=== PATIENT | female | born 1935 | race Caucasian/White ===

== ENCOUNTER 2018-03-07 14:13 | Emergency (ER) | payer MEDICARE, OTHER, SELFPAY ==
[2018-03-07 14:14] VITALS: BP 156/66; PULSE 57; RESP 16; TEMP 36; O2SAT 100; BMI 25.4
--- NOTE | 2018-03-07 14:22 | EKG12_ITS ---
Test Reason : REPEAT Blood Pressure : / mmHG Vent. Rate : 062 BPM Atrial Rate : 062 BPM P-R Int : 000 ms QRS Dur : 070 ms QT Int : 406 ms P-R-T Axes : 000 032 020 degrees QTc Int : 412 ms Junctional rhythm Abnormal ECG Confirmed by AUSTIN GRANADO MD ([id number]), fan mail editor GARY LIVE ([id number]) on 03/10/2018 2:31:17 PM Referred By: GENNA Confirmed By:AUSTIN GRANADO MD
--- NOTE | 2018-03-07 14:22 | RAD_ITS ---
STUDY: X-RAY CHEST REASON FOR EXAM: Female, 82 years old. Chest pain and cough. TECHNIQUE: Single AP portable view of the chest. COMPARISON: None. FINDINGS: EKG electrodes are seen. The lungs are clear and expanded. There is no demonstrated pleural abnormality. Normal size heart. Normal mediastinum and sixto. Normal visualized pulmonary arteries. There is atherosclerotic tortuosity of the aortic arch and descending thoracic aorta. There are degenerative changes of the visualized thoracic spine. There is degenerative osteoarthritis of the bilateral shoulders. Moderate sized hiatal hernia. RAD/Chest 1 View (Portable) IMPRESSION: Hiatal hernia. No acute abnormality is seen. Electronically Signed: Olaf Craig MD at 15:28 EST Tel [phone], Service support ,
--- NOTE | 2018-03-07 14:35 | ED.VISSUMM ---
- ER Visit Summary Date of Service: 03/07/18 Chief Complaint: Chest pain History of Present Illness: The patient is a 82 F past medical history of hypertension and dementia. Patient started complaining of some chest discomfort today around noon. Denies any shortness of breath. No hemoptysis. She is never had a DVT or PE. Denies any leg pain or swelling. She has recently traveled to and from driving over the last 7 weeks. Daughter is with her to help with the history due to the patient's dementia. Patient has never had any history of cardiac disease. She has not been ill recently. No nausea, vomiting or diarrhea.. She has had no recent exertional dyspnea. No fever. No hemoptysis. Physical Examination: Older female no acute distress. Vital signs are stable and afebrile. H EENT exam is unremarkable. Neck nontender no lymphadenopathy. Pupils are round reactive light. No facial droop. Lungs clear to auscultation bilaterally. Heart regular rate and rhythm no murmur rate about 60. Chest wall does have reproducible tenderness along the sternum and rib cages. There is no ecchymosis or bruising. There is no subcu air. There is no redness nor warmth. Abdomen is soft and nontender. Normal bowel sounds no peritoneal signs. Patient is moving all 4 extremities. Neurovascular intact. Calves are nontender without edema or cords. 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 Dorsi and plantar flexion intact. Back nontender. Neurologically she is awake and alert. Answers questions. Her history is limited due to her dementia and the accuracy of her statements may be limited also. She has no focal motor deficits. Test Results: Chest x-ray portable one view shows chronic changes no acute process normal cardiac silhouette mediastinum. EKG sinus rhythm rate of 58 with no acute signs of [place] nor CBC shows a white count of 4. Hemoglobin 11. Electrolytes are unremarkable normal BUN/creatinine and gap. Troponin normal. D-dimer is elevated at 1.66. For that reason a CTA of the chest will be obtained. CTA read by the radiologist showed no acute abnormality. I did review the film also. Emergency Department Course and Treatment: Patient will undergo cardiac workup. She also will have a d-dimer done due to her recent travel. However she does have reproducible chest wall pain. Repeat exam patient is doing well. Discussed all test results with her and her daughter and her current with her being discharged home. Treatment Plan: Tylenol for pain. Limited Motrin. Follow-up with your doctor. Disposition: Discharge Impression: Acute chest pain Acute chest wall pain This note was generated with [employer] dictation software. It may contain incorrect words, spelling, and punctuation that were not noted in review of the chart prior to signing ED Disposition - Plan for ED Patient: Chief Complaint: Chest Pain Referrals: Chandler Mccann MD [Primary Care Provider] -
--- NOTE | 2018-03-07 14:39 | ED.DCSUM_ITS ---
- ER Visit Summary Date of Service: 03/07/18 Chief Complaint: Chest pain History of Present Illness: The patient is a 82 F past medical history of hypertension and dementia. Patient started complaining of some chest discomfort today around noon. Denies any shortness of breath. No hemoptysis. She is neve r had a DVT or PE. Denies any leg pain or swelling. She has recently traveled to and from driving over the last 7 weeks. Daughter is with her to help with the history due to the patient's dementia. Patient has never had any history of cardiac disease. She has not been ill recently. No nausea, vomiting or diarrhea.. She has had no recent exertional dyspnea. No fever. No hemoptysis. Physical Examination: Older female no acute distress. Vital signs are stable and afebrile. H EENT exam is unremarkable. Neck nontender no lymphadenopathy. Pupils are round reactive light. No facial droop. Lungs clear to auscultation bilaterally. Heart regular rate and rhythm no murmur rate about 60. Chest wall does have reproducible tenderness along the sternum and rib cages. There is no ecchymosis or bruising. There is no subcu air. There is no redness nor warmth. Abdomen is soft and nontender. Normal bowel sounds no peritoneal signs. Patient is moving all 4 extremities. Neurovascular intact. Calves are nontender without edema or cords. 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 Dorsi and plantar flexion intact. Back nontender. Neurologically she is awake and alert. Answers questions. Her history is limited due to her dementia and the accuracy of her statements may be limited also. She has no focal motor deficits. Test Results: Chest x-ray portable one view shows chronic changes no acute process normal cardiac silhouette mediastinum. EKG sinus rhythm rate of 58 with no acute signs of SD nor CBC shows a white count of 4. Hemoglobin 11. Electrolytes are unremarkable normal BUN/creatinine and gap. Troponin normal. D-dimer is elevated at 1.66. For that reason a CTA of the chest will be obtained. CTA read by the radiologist showed no acute abnormality. I did review the film also. Emergency Department Course and Treatment: Patient will undergo cardiac workup. She also will have a d-dimer done due to her recent travel. However she does have reproducible chest wall pain. Repeat exam patient is doing well. Discussed all test results with her and her daughter and her current with her being discharged home. Treatment Plan: Tylenol for pain. Limited Motrin. Follow-up with your doctor. Disposition: Discharge Impression: Acute chest pain Acute chest wall pain This note was generated with [employer] dictation software. It may contain incorrect words, spelling, and punctuation that were not noted in review of the chart prior to signing ED Disposition - Plan for ED Patient: Chief Complaint: Chest Pain Referrals: Chandler Mccann MD [Primary Care Provider] -
[2018-03-07] MEDS: Aspirin 325 MG Tablet PO (14:44)
[2018-03-07 14:45] LABS: Absolute Lymphocyte Count 1.57 X10^3/ul (0.83-4.51); Absolute Neutrophil Count 2.2 X10^3/uL (2.0-7.7); Basophil# 0.01 X10^3/uL; Basophil% 0.2 % (0-1); Eosinophil# 0.09 X10^3/uL; Eosinophils% 2.2 % (0-5); Hematocrit 35.2 % (37-47); Hemoglobin 11.8 g/dl (12.0-15.0); Lymphocyte # 1.57 X10^3/ul (4.0); Lymphocyte % 37.6 % (19-41); Mean Corp Hgb Conc 33.5 g/gl (32-36); Mean Corpuscular Hgb 30.2 pg (27.0-32.0); Mean Platelet Vol. 10.2 fl (6.2-12.0); Monocyte# 0.31 X10^3/uL; Monocyte% 7.4 % (0-10); Neutrophil # 2.19 X10^3/uL (2.7-7.7); Neutrophil % 52.4 % (47-70); Platelet Count 183 K/mm3 (150-450); RBC Distribution Width CV 12.7 % (11.6-14.6); RBC Distribution Width SD 41.2 fl (35.1-43.9); Red Blood Count 3.91 M/mm3 (4.2-5.4); White Blood Count 4.2 K/mm3 (4.4-11.0)
[2018-03-07 14:46] LABS: POSITIVE COUNT NO; POSITIVE DIFFERENTIAL NO; POSITIVE MORPHOLOGY NO
[2018-03-07 14:55] LABS: D-Dimer Quantitative (DVT/PE) 1.66 FEU/ug/m (0.27-0.49)
[2018-03-07 15:00] LABS: Anion Gap 8 (5-15); BUN 15 mg/dL (7-18); BUN/Creat Ratio 14.6 RATIO (10-20); Chloride 109 mmol/L (98-107); Creatinine, Serum 1.03 mg/dL (0.55-1.02); EST Glomerular Filtration Rate 55 mL/min (>60); Est Glom Filt Rate - Afr Amer 66 mL/min (>60); Estimated Creatinine Clearance 30.25 ml/min; Glucose 85 mg/dL (74-106); Sodium Level 143 mmol/L (136-145)
--- NOTE | 2018-03-07 15:02 | ED.RN ---
lab called critical d-dimer of 1.66. dr morris aware
--- NOTE | 2018-03-07 15:06 | CT_ITS ---
STUDY: CTA CHEST REASON FOR EXAM: Female, 82 years old. Elevated d-dimer. RADIATION DOSAGE (If Supplied By Facility): CTDIvol = ( 10.48 ) mGy, DLP = ( 373.13 ) mGycm TECHNIQUE: The examination was performed with the intravenous administration of 75 ml of Isovue 370 contrast material. Post-processing of the angiographic images was performed, with multiplanar reformation and 3D reconstruction. Individualized dose optimization techniques were used for this CT. COMPARISON: Comparison is made with prior chest radiograph done earlier in the day. FINDINGS: Normal enhancement of the main pulmonary artery and right and left pulmonary arteries. Normal enhancement of the bilateral peripheral pulmonary arteries. There is no demonstrated pulmonary embolism. Normal thoracic aorta and visualized great vessels. There is no demonstrated aortic dissection. Normal heart and pericardium. Normal mediastinum. Normal hilar regions. Normal visualized trachea and bronchi. The lungs are well expanded. Minimal increased linear markings in the posterior medial segment of the lower lobes suggestive of linear scarring. There is a 4.9 mm noncalcified nodule adjacent to the medial aspect of the left hemidiaphragm as seen on axial image #32. Normal pleura. Normal chest wall structures. There are degenerative changes of thoracic spine. There is a 1.8 cm x 2 cm cyst in the lateral upper aspect of the left kidney. There is also evidence of a 2.4 cm x 1.8 cm cyst along the posteromedial aspect of the right lobe of the liver. Moderate sized hiatal hernia. CT/CTA Chest W/WO Contrast IMPRESSION: Mild scarring at the right lung base. No evidence of pulmonary embolism. Electronically Signed: Olaf Craig MD at 16:03 EST Tel [phone], Service support ,
--- NOTE | 2018-03-07 15:39 | EKG12_ITS ---
Test Reason : CP Blood Pressure : / mmHG Vent. Rate : 058 BPM Atrial Rate : 058 BPM P-R Int : 134 ms QRS Dur : 074 ms QT Int : 428 ms P-R-T Axes : 007 025 019 degrees QTc Int : 420 ms Sinus bradycardia Otherwise normal ECG Confirmed by VANNESA SOLORIO, AUSTIN ([id number]), video effects editor GARY LIVE ([id number]) on 03/10/2018 2:31:37 PM Referred By: ZACARIAS Confirmed By:AUSTIN GRANADO MD
[2018-03-07] MEDS: 0.9% Normal Saline 1,000 ML 999 ML IV (15:48)
--- NOTE | 2018-03-07 16:16 | ED.DEP ---
ED Disposition - Plan for ED Patient: Disposition: Home or Assisted Living Chief Complaint: Chest Pain Instructions: ED Strain Chest Wall Referrals: Chandler Mccann MD [Primary Care Provider] - 3-5 Days if not improving Additional Instructions: Motrin for pain. Follow-up with your doctor if not improving. Return to ER feeling worse.
[2018-03-07 16:35] VITALS: PULSE 59; RESP 16; O2SAT 98
== END 2018-03-07 16:36 | disposition home or self-care (01) ==
PROVIDERS: Emergency Provider Emergency Medicine
DX: R07.89 Other chest pain (principal); F03.90 Unspecified dementia, unspecified severity, without behavioral disturbance, psychotic disturbance, mood disturbance, and anxiety; I10 Essential (primary) hypertension
CPT/HCPCS: 71045; 71275; 80048; 84484; 85025; 85379; 93005; 96360; 99284; J7030; Q9967